=== PATIENT | female | born 1950 | race Two or more races ===

== ENCOUNTER 2019-06-01 23:25 | Emergency (ER) | payer SELFPAY ==
[~2019-06-01] VITALS: Ht 149.9 cm; Wt 81.6 kg
[2019-06-02 00:15] VITALS: BP 184/67
[2019-06-02] MEDS ORDERED: LET TOPICAL SOLN 5 ML TOP ONE (01:45)
[2019-06-02] MEDS ORDERED: ACETAMINOPHEN/CODEINE#3 (300/30mg) TAB PO ONE (02:00)
[2019-06-02] MEDS ORDERED: methylPREDNISolone SOD SUCC 125 MG/2 ML VL IM ONE (02:00)
== END 2019-06-02 02:49 | disposition home or self-care (01) ==
LOC: ER 23:31
DX: S00.452A Superficial foreign body of left ear, initial encounter (principal)
CPT/HCPCS: 99284; J2930; J3490